=== PATIENT | male | born 1960 | race Caucasian/White ===

== ENCOUNTER 2017-01-13 19:56 | Emergency (ER) | payer OTHER ==
[2017-01-13] MEDS ORDERED: KETOROLAC TROMETHAMINE 60 MG/2 ML VIAL ONE (20:12)
[2017-01-13 20:46] LABS: URINE BILIRUBIN NEGATIVE (NEGATIVE); URINE BLOOD 4+ (NEGATIVE); URINE GLUCOSE (UA) NEGATIVE (NEGATIVE); URINE LEUKOCYTE ESTERASE TRACE (NEGATIVE); URINE NITRITE NEGATIVE (NEGATIVE); URINE PROTEIN NEGATIVE (NEGATIVE); URINE UROBILINOGEN NORMAL (0-1 mg/dl)
--- NOTE | 2017-01-13 20:49 | CT ---
Examination: Noncontrast CT scans of the Abdomen and Pelvis Clinical indication: Right flank pain. Comparison:None Technique: Multidetector CT scanner was utilized. No oral or intravenous contrast was administered. Axial images were acquired from just above the domes of the diaphragm to the iliac crest. A CT scan of the pelvis was carried out from the iliac crest to the initial tuberosities. Sagittal, axial and coronal stacked 5 mm images were reviewed. Findings: Abdomen CT (noncontrast): There is bibasilar atelectasis. No mass or consolidation is identified. Liver exhibits a small punctate calcification in the anterior segment of the right lobe. The remainder the hepatic parenchyma is within normal limits. The gallbladder is within normal limits. There is no evidence of biliary obstruction. The spleen size and attenuation are within normal limits. The pancreas is normal in size and contours. No inflammatory stranding is identified. The pancreatic duct is unremarkable. The adrenals are unremarkable. There is right hydronephrosis. There is an obstructing calculus in the proximal right ureter measuring 0.7 x 0.4 cm. There are multiple bilateral renal calculi as well. In the lower pole the right kidney there is a 4 mm calculus. Multiple smaller punctate calcification cortical medullary junctions bilaterally noted raise a question of medullary sponge kidney. The abdominal aorta unremarkable. There is no retroperitoneal adenopathy identified. The stomach is unremarkable. The visualized segments of small and large bowel are within normal limits. The osseous structures exhibit no displaced fracture. No lytic or blastic lesions are identified. Pelvic CT findings (noncontrast): The distal ureters and bladder are unremarkable. The prostate is normal in size. No adenopathy is identified. Mild after chronic plaquing involves iliac vessels. There is no aneurysm. The visualized segments of small and large bowel are within normal limits. The appendix is unremarkable. No displaced fractures are identified. There are no gross osteolytic or blastic lesions. The overlying soft tissues are unremarkable. IMPRESSION: 1. 0.7 x 0.4 cm calculus proximal right ureter with moderate secondary right hydronephrosis. 2. Numerous bilateral renal calculi at the cortical medullary junction raising the question of medullary sponge kidney. 3. Mild bibasilar atelectasis. 4. Evidence of prior granulomatous process involving the liver. 5. Atherosclerosis. 6. Normal appendix. The findings were uploaded to the electronic medical record for review at approximately 8:49 PM 01/13/2017
[2017-01-13 20:51] LABS: URINE APPEARANCE CLOUDY; URINE COLOR DARK YELLOW
[2017-01-13 20:57] LABS: URINE BACTERIA TRACE; URINE EPITHELIAL CELLS 0-1 /hpf; URINE RBC >100 /hpf; URINE WBC 0-2 /hpf
== END 2017-01-13 20:58 | disposition home or self-care (01) ==
LOC: ED 19:56
DX: N20.0 Calculus of kidney (principal); Z87.442 Personal history of urinary calculi; E78.5 Hyperlipidemia, unspecified; E78.00 Pure hypercholesterolemia, unspecified; Z79.899 Other long term (current) drug therapy
CPT/HCPCS: 81001; 74176; 99283 ×2; 96372; J1885